=== PATIENT | male | born 1985 | race Caucasian/White ===

== ENCOUNTER 2020-09-18 11:38 | Emergency (ER) | payer SELFPAY ==
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
--- NOTE | 2020-09-18 12:11 | Diagnostic Imaging Report ---
INDICATION: Injury to right hand AP, oblique, lateral views the right hand are obtained at length at 11:52 a.m. There is an acute fracture of the 5th metacarpal shaft with displacement and overlapping of fracture fragments. Remaining bony structures are intact. Joint spaces are unremarkable. IMPRESSION: Acute right 5th metacarpal fracture as above. Dictated by: Dictated on workstation # [id number]
[2020-09-18] MEDS ORDERED: oxyCODONE/APAP 5/325MG (PERCOCET 5) TABLET PO ONE (12:15)
[2020-09-18] MEDS ORDERED: ACHD5005 PO (12:26)
[2020-09-18 12:50] VITALS: BP 128/79
== END 2020-09-18 12:50 | disposition home or self-care (01) ==
LOC: EDUNIT# 11:38 → ER FS 11:40
DX: S62.326A Displaced fracture of shaft of fifth metacarpal bone, right hand, initial encounter for closed fracture (principal); V86.59XA Driver of other special all-terrain or other off-road motor vehicle injured in nontraffic accident, initial encounter
CPT/HCPCS: 29125; 73130

== ENCOUNTER 2023-05-27 14:17 | Emergency (ER) | payer SELFPAY ==
[~2023-05-27] VITALS: Ht 177 cm; Wt 62.0 kg
[~2023-05-27 14:17] MED LIST: ACHD5005 PO
[2023-05-27 14:29] VITALS: BP 138/120
--- NOTE | 2023-05-27 14:46 | ED GU-Male ---
General Chief Complaint: - Reproductive Stated Complaint: HEMATURIA Nursing Triage Note: Patient has presented to ER - he is rude at times - he reports blood in the urine for 3 years. He has not seen a doctor and was brought to ER because his friend told him that he must be seen. Source: patient, other (Friend) History of Present Illness Date Seen by Provider: May 27, 2023 Time Seen by Provider: 14:28 Initial Comments 38-year-old male patient with history of alcohol abuse presented POV with female "just friend" with complaining of blood in his urine for 3 years. Patient stated for the last 3 years he has had gross blood in his urine and sometimes passing blood clots and this morning he was not able to urinate that was not the first time for him but his friend recommended to come to ER. Patient stated he drinks more than 1 pint of whiskey every day for 17 years and last night had a fall because of drinking too much and had abrasion of left side of his face. Patient denies dysuria, urinary frequency, melena, easy bruising and ecchymosis, nausea and vomiting, fever and chills, weight loss. Patient was seen at his "just friend "[facility] appointment today and plans to follow-up with therapist for alcohol abuse. Patient denies using drugs, suicidal or homicidal ideation, hallucination. Patient stated he had a physical job and does not have shortness of breath and chest pain and palpitation and denies any problem and stated "I am a man". Patient did not seek medical attention for this problem and has not seen by a physician for years. Timing/Duration: other (3 years) Allergies and Home Medications Allergies Coded Allergies: No Known Drug Allergies (Unverified , 09/14/11) Patient Home Medication List Home Medication List Reviewed: Yes Hydrocodone/Acetaminophen (Hydrocodone-Acetamin 5-325 mg) 1 Each Tablet, 1 TAB PO Q4H PRN for PAIN-MODERATE (5-7) Prescribed by: GABY LORA on 09/18/20 1226 Review of Systems Review of Systems Constitutional: no symptoms reported EENTM: no symptoms reported Respiratory: no symptoms reported Cardiovascular: no symptoms reported Gastrointestinal: no symptoms reported Genitourinary: see HPI Musculoskeletal: no symptoms reported Skin: see HPI Psychiatric/Neurological: See HPI Endocrine: No Symptoms Reported All Other Systemes Reviewed Negative Unless Noted: Yes Past Dnaudxi-Iamivc-Fjcrze Hx Patient Social History Tobacco Use?: No Substance use?: No Alcohol Use?: Yes Alcohol type: Hard Liquor Alcohol Frequency: Daily Seasonal Allergies Seasonal Allergies: No Past Medical History Surgeries: Yes (neck, foot, jaw) Appendectomy, Orthopedic Respiratory: No Cardiac: No Neurological: No Genitourinary: No Gastrointestinal: No Musculoskeletal: No Endocrine: No HEENT: No Cancer: No Psychosocial: No Integumentary: No Blood Disorders: No Physical Exam Vital Signs Vital Signs - First Documented 05/27/23 14:29 Temp 37.0 Pulse 109 Resp 16 B/P (MAP) 138/120 (126) Pulse Ox 95 Capillary Refill : Height, Weight, BMI Height: '" Weight: lbs. oz. kg; 19.00 BMI Method: General Appearance: no apparent distress (Anxious, smell of alcohol on breath) HEENT: PERRL/EOMI Neck: non-tender Cardiovascular: normal peripheral pulses, no edema, no gallop, tachycardia Respiratory: chest non-tender, lungs clear Gastrointestinal: normal bowel sounds, non tender, soft, no organomegaly (No cirrhosis or organomegaly) Back: other (Scoliosis) Extremities: normal range of motion Neurologic/Psychiatric: no motor/sensory deficits, alert Skin: normal color, other (Left side facial old abrasion, no pallor) Progress/Results/Core Measures Suspected Sepsis SIRS Temperature: Pulse: 109 Respiratory Rate: 16 Blood Pressure 138 /120 Mean: 126 Results/Orders My Orders Orders - TOMY VAZQUEZ MD Urinalysis (05/27/23 14:26) Vital Signs/I&O 05/27/23 14:29 Temp 37.0 Pulse 109 Resp 16 B/P (MAP) 138/120 (126) Pulse Ox 95 Capillary Refill : Blood Pressure Mean: 126 Progress Note : Progress Note Patient with history of alcohol abuse and complaining of hematuria for 3 years without seeking medical attention. Patient had scoliosis and smell of alcohol in his breath with mild tachycardia of 109. Blood pressure reading was not a correct one and it was not repeated by RN. UA was ordered but patient eloped without signing AGAINST MEDICAL ADVICE. Departure Impression Primary Impression: Noncompliance Disposition: 07 AGAINST MEDICAL ADVICE (Eloped without signing AMA) Condition: Stable Departure-Patient Inst. Referrals: NO,LOCAL PHYSICIAN (PCP/Family) Primary Care Physician TOMY VAZQUEZ MD May 27, 2023 14:46
== END 2023-05-27 14:44 | disposition left against medical advice (07) ==
LOC: EDUNIT# 14:17 → ER FS 14:19
DX: S00.81XA Abrasion of other part of head, initial encounter (principal); R31.9 Hematuria, unspecified; M41.9 Scoliosis, unspecified; Z91.148 Patient's other noncompliance with medication regimen for other reason; W18.30XA Fall on same level, unspecified, initial encounter
CPT/HCPCS: 99281